=== PATIENT | male | born 1995 | race Hispanic/Latino ===

== ENCOUNTER 2019-08-29 09:42 | Emergency (ER) | payer SELFPAY ==
[2019-08-29 10:16] LABS: #Basophils 0.1 thou/uL (0.0-0.2); #Eosinphils 0.1 thou/uL (0.0-0.7); #Lymphocytes 1.5 thou/uL (1.20-3.40); #Monocytes 0.8 thou/uL (0.11-0.59); #Neutrophils 6.1 thou/uL (1.40-6.50); %Basophils 0.8 % (0.0-1.0); %Eosinophils 1.2 % (0.0-10.0); %Lymphocytes 17.7 % (21.0-51.0); %Monocytes 8.9 % (0.0-10.0); %Neutrophils 71.5 % (42.0-75.0); Hemoglobin 14.9 g/dL (14.0-18.0); Mean Corpuscular HGB CONC 34.9 g/dL (32.0-36.0); Mean Corpuscular Hemoglobin 32.7 pg (27.0-31.0); Mean Corpuscular Volume 93.6 fL (78.0-98.0); Mean Platelet Volume 7.4 fL (7.4-10.4); Platelet Count 347 thou/uL (130-400); RBC Distribution Width 12.7 % (11.5-14.5); Red Blood Cell (RBC) Count 4.55 mill/uL (4.70-6.10); White Blood Cell (WBC) Count 8.5 thou/uL (4.8-10.8)
[2019-08-29 10:32] LABS: ALT (SGPT) 84 U/L (8-55); AST (SGOT) 54 U/L (5-34); Albumin 4.4 g/dL (3.5-5.0); Alkaline Phosphatase 81 U/L (40-110); Anion Gap 23 mmol/L (10-20); BUN (Urea Nitrogen) 11 mg/dL (8.9-20.6); Bilirubin, Total 1.8 mg/dL (0.2-1.2); Calc. Creatinine Clearance 0 mL/min (70-130); Calcium 9.3 mg/dL (7.8-10.44); Carbon Dioxide 18 mmol/L (22-29); Chloride 99 mmol/L (98-107); Estimated GFR-MDRD 74; Globulin 2.7 g/dL (2.4-3.5); Glucose 119 mg/dL (70-105); Potassium 3.8 mmol/L (3.5-5.1); Protein, Total 7.1 g/dL (6.0-8.3); Sodium 136 mmol/L (136-145)
--- NOTE | 2019-08-29 10:37 | RAD ---
Exam:3 views right shoulder HISTORY: Pain. Injury. COMPARISON: None FINDINGS: Glenohumeral joint spaces preserved. No fracture or dislocation. Visualized right ribs and lung parenchyma are unremarkable. IMPRESSION: No posttraumatic change.
--- NOTE | 2019-08-29 10:37 | RAD ---
Exam: Chest one view HISTORY:Pain. Injury. New onset seizure. Comparison: None FINDINGS: Cardiac silhouette: Normal Aorta: Unremarkable Pulmonary vessels: Normal Costophrenic angles: Clear LUNGS: No masses or consolidation. Pneumothorax: None Osseous abnormalities: None IMPRESSION: No acute cardiopulmonary process.
--- NOTE | 2019-08-29 12:04 | CT ---
CT HEAD WITHOUT IV CONTRAST COMPARISON: None HISTORY: Headache. Possible seizure. Frontal headache. TECHNIQUE: Axial CT imaging at 5 mm intervals from vertex through skull base without contrast FINDINGS: There is no evidence of an acute infarction, hemorrhage, mass effect, or midline shift. The ventricul ar system is normal in size, shape, and position. Visualized paranasal sinuses are clear. Osseous structures appear intact. IMPRESSION: 1. No acute intracranial abnormality demonstrated.Follow-up MRI brain may be helpful for further eval uation given reported history of seizure.
[2019-08-29 12:36] LABS: Amphetamine Not Detected (NotDetected); Barbiturates Screen Not Detected (NotDetected); Benzodiazepine Screen Detected (NotDetected); Cocaine Metabolite Screen Not Detected (NotDetected); Medtox Control Line Valid? VALID (VALID); Medtox Reader # READER 1; Methadone Not Detected (NotDetected); Methamphetamine Not Detected (NotDetected); Opiate Screen Detected (NotDetected); Oxycodone Screen Not Detected (NotDetected); Phencyclidine (PCP) Not Detected (NotDetected); THC/Cannabinoid Screen Not Detected (NotDetected); Tricyclic Screen Not Detected (NotDetected)
--- NOTE | 2019-08-31 15:09 | EKG ---
Test Reason : SEIZURE Blood Pressure : / mmHG Vent. Rate : 121 BPM Atrial Rate : 121 BPM P-R Int : 138 ms QRS Dur : 078 ms QT Int : 342 ms P-R-T Axes : 054 030 048 degrees QTc Int : 485 ms Sinus tachycardia Possible Left atrial enlargement Confirmed by SARA SWANN DO ([id number]), editorial cartoonist BALAJI BRODY ([id number] on 08/31/2019 3:09:20 PM Referred By: Confirmed By:SARA SWANN DO
== END 2019-08-29 13:26 | disposition home or self-care (01) ==
LOC: EDBD 09:42 → ERS 09:42
DX: S01.552A Open bite of oral cavity, initial encounter (principal); S30.811A Abrasion of abdominal wall, initial encounter; R56.9 Unspecified convulsions; F41.9 Anxiety disorder, unspecified; W18.30XA Fall on same level, unspecified, initial encounter
CPT/HCPCS: 36415; 70450; 71045; 80053; 80306; 85025; 93005; 96360